=== PATIENT | female | born 1995 | race Two or more races ===

== ENCOUNTER 2024-05-22 14:12 | Outpatient (CLI) | payer OTHER | END 2024-05-22 14:16 | disposition home or self-care (01) | LOC: PRENATAL 14:12 | PROVIDERS: ATTEND Obstetrics & Gynecology Maternal & Fetal Medicine | DX: O36.80X0 Pregnancy with inconclusive fetal viability, not applicable or unspecified (principal); Z36.82 Encounter for antenatal screening for nuchal translucency; Z14.8 Genetic carrier of other disease; Z3A.12 12 weeks gestation of pregnancy ==

== ENCOUNTER 2024-07-14 10:49 | Outpatient (CLI) | payer OTHER | END 2024-07-14 10:50 | disposition home or self-care (01) | LOC: PRENATAL 10:49 | PROVIDERS: ATTEND Obstetrics & Gynecology Maternal & Fetal Medicine | DX: O44.00 Complete placenta previa NOS or without hemorrhage, unspecified trimester (principal); Z3A.20 20 weeks gestation of pregnancy ==

== ENCOUNTER → 2024-10-08 10:08 | Outpatient (CLI) | payer OTHER | END | disposition home or self-care (01) | LOC: PRENATAL 10:08 | PROVIDERS: ATTEND Obstetrics & Gynecology Maternal & Fetal Medicine | DX: O26.849 Uterine size-date discrepancy, unspecified trimester (principal); O36.8199 Decreased fetal movements, unspecified trimester, other fetus; O32.9XX0 Maternal care for malpresentation of fetus, unspecified, not applicable or unspecified; Z3A.32 32 weeks gestation of pregnancy ==

== ENCOUNTER 2024-11-20 09:06 | Inpatient (IN) | payer OTHER ==
[~2024-11-20] VITALS: Ht 157.5 cm; Wt 2.7 kg
[2024-11-20 10:05] LABS: BASO % 0.3 % (0.1-1.2); EOS # 0.20 (0.04-0.54); EOS % 2.6 % (0.7-7.0); LYMPH # 1.27 (1.18-3.74); LYMPH % 16.3 % (19.3-53.1); MEAN PLATELET VOLUME 10.20 fl (9.4-12.4); MONO # 0.47 (0.24-0.82); MONO % 6.0 % (4.7-12.5); NEUT # 5.79 (1.56-6.13); NEUT % 74.4 % (34.0-71.1); RED CELL DISTRIBUTION WIDTH 14.6 % (11.6-14.4)
[2024-11-20 10:14] LABS: URINE APPEARANCE Clear; URINE BILIRRUBIN Negative (NEGATIVE); URINE BLOOD Negative; URINE COLOR Yellow; URINE GLUCOSE Negative (NEGATIVE); URINE KETONE Negative (NEGATIVE); URINE LEUKOCYTE Trace; URINE NITRATE Negative; URINE PROTEIN Negative (NEGATIVE); URINE UROBILINOGEN 0.2 E.U./dl
[2024-11-20 10:18] LABS: URINE BACTERIA 1182.8 uL (0.0-1933); URINE EPITHELIAL CELLS 9.6 uL (0.0-38.8); URINE RBC 2.9 uL (0.0-20.8); URINE WBC 12.1 uL (0.0-23.2)
[2024-11-20 10:29] LABS: INR < 0.93
[2024-11-20 10:45] LABS: URINE CAST 0.58 uL (0.0-1.40)
[2024-11-23 07:59] VITALS: BP 104/68
[2024-11-23] MEDS ORDERED: VITAMIN C100 MG PO (09:13)
[2024-11-23] MEDS ORDERED: FOLIC ACID0.8 M1 PO (09:13)
[2024-11-23] MEDS ORDERED: PRENATA CHEWAB1 EACH PO (09:13)
[2024-11-23] MEDS ORDERED: RINGERS SOLUTION,LACTATED 1,000 ML IV SCH (09:45)
[2024-11-23] MEDS ORDERED: PROMETHAZINE HCL 50 MG/ML AMPUL IM PRN (11:45)
[2024-11-23] MEDS ORDERED: ERYTHROMYCIN BASE OPHT 1GM EACH TUBE OP ONE (12:45)
[2024-11-23] MEDS ORDERED: OXYTOCIN 10 UNITS/ML VIAL IV ONE (12:45)
[2024-11-23] MEDS ORDERED: MORPHINE SULFATE 4 MG/ML CARTRIDGE IV SCH (13:00)
[2024-11-23 15:46] VITALS: BP 103/64
[2024-11-23 17:47] LABS: BASO % 0.1 % (0.1-1.2); EOS # 0.01 (0.04-0.54); EOS % 0.1 % (0.7-7.0); LYMPH # 0.55 (1.18-3.74); LYMPH % 3.8 % (19.3-53.1); MEAN PLATELET VOLUME 10.00 fl (9.4-12.4); MONO # 0.76 (0.24-0.82); MONO % 5.2 % (4.7-12.5); NEUT # 13.18 (1.56-6.13); NEUT % 90.4 % (34.0-71.1); RED CELL DISTRIBUTION WIDTH 14.6 % (11.6-14.4)
[2024-11-23] MEDS ORDERED: KETOROLAC TROMETHAMINE 60 MG VIAL IM NR (18:00)
[2024-11-24] VITALS: BP 112/68
[2024-11-24] MEDS ORDERED: OxyCODONE HCL 5 MG TABLET (ROXICODONE) PO SCH (05:00)
[2024-11-24] MEDS ORDERED: SIMETHICONE 125 MG CAPSULE PO SCH (08:00)
[2024-11-24 08:07] VITALS: BP 105/68
[2024-11-24] MEDS ORDERED: PNV,CALCIUM 72/IRON/FOLIC ACID 1 TAB TABLET PO SCH (09:00)
[2024-11-24] MEDS ORDERED: DOCUSATE SODIUM 100MG CAP PO SCH (09:00)
[2024-11-24 13:03] VITALS: BP 109/75
[2024-11-24 16:00] VITALS: BP 99/63
[2024-11-25 00:53] VITALS: BP 113/70
[2024-11-25 08:45] VITALS: BP 94/61
[2024-11-25 16:45] VITALS: BP 121/71
[2024-11-26] VITALS: BP 109/67
[2024-11-26 09:07] VITALS: BP 109/71
== END 2024-11-26 14:05 | disposition home or self-care (01) | DRG 788 ==
LOC: LDR 11-23 08:57 → OB/GYN 11-23 08:57 → SURG 11-25 09:06 → OB/GYN 11-26 14:05
PROVIDERS: ADMIT Obstetrics & Gynecology; ATTEND Obstetrics & Gynecology
PROC: 4A1HXCZ Monitoring of Products of Conception, Cardiac Rate, External Approach (ICD-10-PCS; 2024-11-23)
PROC: 10D00Z1 Extraction of Products of Conception, Low, Open Approach (ICD-10-PCS; principal; 2024-11-23 10:00)
DX: O32.1XX0 Maternal care for breech presentation, not applicable or unspecified (principal); Z3A.39 39 weeks gestation of pregnancy; Z37.0 Single live birth